=== PATIENT | female | born 1985 | race American Indian/Alaskan Native ===

== ENCOUNTER 2016-09-10 16:05 | Emergency (ER) | payer SELFPAY ==
[2016-09-10 16:45] LABS: Urine Drugs of Abuse Note Disclamer
[2016-09-10 17:01] LABS: Bilirubin,Urine NEG (Negative); Blood,Urine NEG (Negative); Ketones,Urine 20 mg/dL (Negative); Leukocyte Esterase,Urine NEG (Negative); Mucus,Urine 3+ /HPF; Nitrite,Urine NEG (Negative)
[2016-09-10 17:06] LABS: Basophils % (Auto) 0.6 % (0.0-1.8); Eosinophils % (Auto) 0.9 % (0.0-4.3); Hematocrit 42.4 % (30.3-42.9); Hemoglobin 13.5 gm/dl (10.1-14.3); Mean Corpuscular HGB Conc 32 % (30-34); Mean Corpuscular Hemoglobin 28 pg (28-32); Mean Corpuscular Volume 88 fl (79-97); Platelet Count 325 K/mm3 (140-440); Red Blood Count 4.83 M/mm3 (3.65-5.03); Red Cell Distribution Width 17.4 % (13.2-15.2); White Blood Count 8.6 K/mm3 (4.5-11.0)
[2016-09-10 17:23] LABS: Anion Gap 22 mmol/L; Blood Urea Nitrogen 21 mg/dL (7-17); Calcium 9.7 mg/dL (8.4-10.2); Carbon Dioxide 23 mmol/L (22-30); Chloride 98.3 mmol/L (98-107); Glucose 90 mg/dL (65-100); Potassium 3.5 mmol/L (3.6-5.0); Sodium 140 mmol/L (137-145)
--- NOTE | 2016-09-10 18:27 | Emergency Department Report ---
ED Female HPI - General Chief complaint: Psych Stated complaint: LWR ABD PAIN/VAG PAIN Time Seen by Provider: 09/10/16 18:08 Source: patient, EMS Mode of arrival: Ambulatory Limitations: No Limitations - History of Present Illness Initial comments: Pt is a 31 yr old F with a h/o psychiatric illness bipolar and schizophrenia who presents to the ED with multiple complaints. Pt is a poor historian, but reports she was in a home here in [facility] where she was doing a lot of drugs and "felt unsafe". The patient reports she has been off her psych medications, and needs "to get herself right and check out". Pt reports she is hearing voices, but cannot elaborate on the voices. She denies any SI/HI, delusions, or homicidal ideations. Pt is from [place], [place] and reports all her meds are at her mother's house. Pt also reports vaginitis symptoms of pain and itching. Pt has had multiple STD's in the past, but reports she has been treated. Pt is not forthcoming about the events leading up to today's visit. As per EMS, they were called to house after police had been there for a possible prostitution sting operation, and upon arrival the patient was c/o vaginitis and was telling EMS "I need to get checked out" and was brought to the hospital. Otherwise no fevers, chills, HART, NVD, CP, SOB, CP, abd pain, travel, or sick contacts. - Related Data Home Medications Medication Instructions Recorded Confirmed Last Taken Unobtainable 09/10/16 09/10/16 Unknown Allergies Allergy/AdvReac Type Severity Reaction Status Date / Time No Known Allergies Allergy Unverified 09/10/16 16:15 ED Review of Systems ROS: Stated complaint: LWR ABD PAIN/VAG PAIN Other details as noted in HPI ED Past Medical Hx - Past Medical History Previous Medical History?: Yes Hx Psychiatric Treatment: Yes (bipolar, schizophrenia) Additional medical history: STD exposure, Vaginal delivery x 1 - Surgical History Past Surgical History?: No - Social History Smoking Status: Current Every Day Smoker Substance Use Type: Alcohol, Cocaine, Marijuana, Prescribed - Medications Home Medications: Home Medications Medication Instructions Recorded Confirmed Last Taken Type Unobtainable 09/10/16 09/10/16 Unknown History ED Physical Exam - General Limitations: No Limitations General appearance: alert, in no apparent distress - Head Head exam: Present: atraumatic, normocephalic - Eye Eye exam: Present: normal appearance - ENT ENT exam: Present: mucous membranes moist - Neck Neck exam: Present: normal inspection - Respiratory Respiratory exam: Present: normal lung sounds bilaterally. Absent: respiratory distress - Cardiovascular Cardiovascular Exam: Present: regular rate, normal rhythm. Absent: systolic murmur, diastolic murmur, rubs, gallop - GI/Abdominal GI/Abdominal exam: Present: soft, normal bowel sounds - Rectal Rectal exam: Present: deferred - External exam: Present: normal external exam. Absent: erythema, swelling, lesions, lacerations Speculum exam: Present: vaginal discharge, cervical discharge. Absent: erythema , vaginal bleeding, foreign body, laceration Bi-manual exam: Present: normal bi-manual exam - Extremities Exam Extremities exam: Present: normal inspection - Back Exam Back exam: Present: normal inspection - Neurological Exam Neurological exam: Present: alert, oriented X3, CN II-XII intact, normal gait - Psychiatric Psychiatric exam: Present: depressed, anxious, other (crying). Absent: manic, homicidal ideation, suicidal ideation - Skin Skin exam: Present: warm, dry, intact, normal color. Absent: rash ED Course Vital Signs 09/10/16 09/10/16 09/10/16 16:15 18:26 20:19 Temperature 98.5 F 98.3 F Pulse Rate 60 72 Respiratory 18 16 17 Rate Blood Pressure 122/89 Blood Pressure 102/57 [Left] O2 Sat by Pulse 100 99 98 Oximetry 09/11/16 09/11/16 06:08 12:06 Temperature 98 F Pulse Rate 99 H Respiratory 18 18 Rate Blood Pressure Blood Pressure 121/63 131/80 [Left] O2 Sat by Pulse 98 98 Oximetry ED Medical Decision Making - Lab Data Result diagrams: 09/10/16 16:41 09/10/16 16:41 - Medical Decision Making I called the [facility] on [address] in [place], [place] to verify patient's psych medications and the patient has not taken her meds in 2 years: Trazodone 50mg PO QHS Risperdal 1mg PO QHS Celexa 20mg PO Daily Pt made 1013 at 0657 Will treat for Gonorrhea, Chlamydia, and Yeast infection Pt medically cleared, patient needs to be screened by Psych team Psych consult appreciated: Recent 101. Start Vistaril 25 mg by mouth 3 times a day for anxiety and trazodone 50 mg by mouth daily at bedtime for sleep consolidation. Discussed possible suicidality medication induced annmarie with patient referenced antidepressants. Do not discharge patient, will reassess patient in 24 hourswith suicide risk assessment. Critical care attestation.: If time is entered above; I have spent that time in minutes in the direct care of this critically ill patient, excluding procedure time. ED Disposition Clinical Impression: Schizophrenia, Bipolar 1 disorder, Vaginitis, Substance abuse, Substance induced mood disorder Condition: Stable
[2016-09-10] MEDS ORDERED: DIFLUCAN PO ONE (19:20)
[2016-09-10] MEDS ORDERED: XYLOCAINE 1% MPF 5 mL INFILTRATI ONE (19:20)
[2016-09-10] MEDS ORDERED: ROCEPHIN IM ONE (19:20)
[2016-09-10] MEDS ORDERED: ZITHROMAX PO ONE (19:20)
[2016-09-10 19:58] LABS: HIV-1 Antigen p24 Non React (Non React); HIVR-1/2 Ab Non React (Non React)
[2016-09-10] MEDS ORDERED: ATIVAN PO ONE (21:30)
[2016-09-10] MEDS ORDERED: ATIVAN ONE (21:35)
--- NOTE | 2016-09-11 16:28 | Consultation ---
History of Present Illness - Reason for Consult Consult date: 09/11/16 Reason for consult: Mental Health Evaluation Requesting physician: KATINA MANNING - Chief Complaint Chief complaint: "I want to get off drugs" - History of Present Psychiatric Illness Pt is a 31 yr old F with a h/o psychiatric illness presenting to [facility]. Today patient is calm, anxious but emotional during assessment. She stated that she want to get off the street drugs and alcohol (etoh) (cocaine and marijuana). She stated that she has struggled with depression symptoms (sad and feeling hopeless). Also, patient stated that she have experienced auditory hallucinations when the drugs and alcohol wear off. She stated that that she used drugs prior to coming to [facility] because she hate her current life. She stated using cocaine for a couple years with increased alcohol consumption (etoh ). She stated that she fear that she will not be able to get her life together. She stated that she experience sleep disturbance and sexual promiscuity when she use recreational drugs per the patient. She denies SI/HI's and AVH's. She is willing to participate in rehab services once discharged. Medications and Allergies Allergies Allergy/AdvReac Type Severity Reaction Status Date / Time No Known Allergies Allergy Unverified 09/10/16 16:15 Home Medications Medication Instructions Recorded Confirmed Last Taken Type Unobtainable 09/10/16 09/10/16 Unknown History Past psychiatric history - Past Medical History Past Medical History: other (STD's) Past Surgical History: No surgical history - past Psychiatric treatment and history Psych: Depression psychiatric treatment history: Inpatient psy services in [place], [place]. Patient denies a fam psy hx. - Social History Social history: other (GED, resides with friends) Mental Status Exam - Vital signs Last Vital Signs Temp 98 F 09/11/16 12:06 Pulse 99 H 09/11/16 12:06 Resp 18 09/11/16 12:06 BP 131/80 09/11/16 12:06 Pulse Ox 98 09/11/16 12:06 - Exam Narrative exam: ROS: (-) psychosis (+) anxious MSE: Appearance: calm, cooperative Behavior: emotional Speech: low rate and tone Mood: "okay" sad, withdrawn Affect: congruent to mood Thought Process: linear Thought Content: denies SI/HI's and AVH's Motor Activity: ambulatory Cognition: A/Ox 3 Insight: fair Judgment: fair Results Result Diagrams: 09/10/16 16:41 09/10/16 16:41 Abnormal lab results 09/10/16 09/10/16 09/10/16 Range/Units 16:33 16:41 16:41 RDW 17.4 H (13.2-15.2) % [place] % (Auto) 8.8 H (0.0-7.3) % Potassium 3.5 L (3.6-5.0) mmol/L BUN 21 H (7-17) mg/dL Ur Specific [place] 1.032 H (1.003-1.030) U Epithel Cells (Auto) 16.0 H (0-13.0) /HPF All other labs normal. Assessment and Plan Assessment and plan: impression: Substance Induced Mood DO, SHWETHA, Alcohol Use DO, Substance Use DO ( cocaine/marijuana). Today patient is calm, anxious but emotional during assessment. She stated that she want to get off the street drugs and alcohol ( etoh) (cocaine and marijuana). She stated that she has struggled with depression symptoms (sad and feeling hopeless). She denies SI/HI's and AVH's. Positive for marijuana. DDx: R/O Bipolar, MDD I. This screening and assessment is based on information collected from the following sources: II. SUICIDE RISK SCREENING (within last 30 days): A.) Suicidal thoughts/behaviors: None SUICIDE RISK ASSESSMENT III. FACTORS THAT INCREASE RISK: A.) Demographic and Substance Use Factors: None B.) Current/Recent Factors (within past 3 months): Psychosocial/Environmental Factors: Family in [place], [place] Physical Illness: STD Cognitive/Psychological Factors: None C.) Historical Factors: None D.) Diagnostic/Symptom/Treatment Factors: None E.) Acute Risk Factor Severity (DESC; MILD/MOD/SEVERE) mild Other factors for this individual that increase risk: IV. FACTORS THAT DECREASE RISK: Resilience/Protective Factors: Patient want to decrease her stress Other factors for this individual that decrease risk: Patient denies a desire to harm self. V. Clinician's Formulation of Risk and Determination of level of Care: This is a 31-year-old female who is experiencing stress about her life. Patient is concern about her current life reference substance and alcohol abuse. She is willing to attend AA/NA and rehab service once discharged. Since being hospitalized, the patient has consistently denied the desire to harm herself. Additionally, she has become insightful about how to better address her current issue. She is able to take care of her ADLs and is not at imminent risk of harm to self or others. Consequently, it is the opinion of the treatment team that the patient is at low risk of suicide and does not meet criteria to continue an involuntary psychiatric hold. Estimation of Imminent Risk: Low due to the above explanation. Determination of Level of Care based on Suicide Risk: Outpatient follow-up. Narrative description of clinical reasoning. (This must be completed on all patients): . Plan and Interventions based on Suicide Risk: This patient will likely be stepped down to an outpatient mental health center in the community upon discharge and follow-up within 7 days of his discharge from the hospital. VII. Discharge/After Hours Support Plan: Patient can return back to the ER, call 911 or crisis line if symptoms of depression, anxiety, suicidality return. Recommendation/Plan: Rescind 1013. Start Vistaril 25 mg PO TID for anxiety and Trazodone 50 mg PO HS for sleep consolidation. Discussed possible suicidality and medication induced annmarie with patient reference antidepressants. Do not discharge patient, will reassess patient in 24 hours with another suicide risk assessment. .
[2016-09-11] MEDS: VISTARIL PO SCH (21:45)
[2016-09-11] MEDS: DESYREL PO SCH (21:45)
[2016-09-12] MEDS: VISTARIL PO SCH ×3 (09:50→22:01)
--- NOTE | 2016-09-12 12:31 | Progress Note ---
Subjective - Reason for Consult Consult date: 09/12/16 Reason for consult: Psychiatry Follow-up - Chief Complaint Chief complaint: "I will get my life together" Pt is a 31 yr old female with a h/o psychiatric illness presenting to [facility]. Today patient is calm and cooperative during assessment. She stated that she is scared about her next move in life. She is willing to do whatever it take for stabilization (rehab for substance/alcohol) so she can be a better mother. Patient is requesting placement, because she is homeless. Her closest relative, her mom reside in [place], [place]. She denies SI/HI's, AVH's, and depression symptoms. She denies any side effects from her medications. Mental Status Exam - Vital signs Last Vital Signs Temp 97.7 F 09/12/16 11:19 Pulse 95 H 09/12/16 11:19 Resp 16 09/12/16 11:24 BP 107/54 09/12/16 11:19 Pulse Ox 99 09/12/16 11:24 - Exam Narrative exam: MSE: Appearance: calm, cooperative Behavior: emotional Speech: low rate and tone Mood: "okay" sad, withdrawn Affect: congruent to mood Thought Process: linear Thought Content: denies SI/HI's and AVH's Motor Activity: ambulatory Cognition: A/Ox 3 Insight: fair Judgment: fair Assessment and Plan Impression: Substance Induced Mood DO, SHWETHA, Alcohol Use DO, Substance Use DO ( cocaine/marijuana). Today patient is calm and cooperative during assessment. She stated that she is scared about her next move in life, but want to do whatever it takes to get stable and be a better mother. She denies SI/HI's and AVH's. Patient is no threat to self. Positive for marijuana. Patient is homeless. I. This screening and assessment is based on information collected from the following sources: II. SUICIDE RISK SCREENING (within last 30 days): A.) Suicidal thoughts/behaviors: None SUICIDE RISK ASSESSMENT III. FACTORS THAT INCREASE RISK: A.) Demographic and Substance Use Factors: None B.) Current/Recent Factors (within past 3 months): Psychosocial/Environmental Factors: Family in [place], [place] Physical Illness: STD resolved Cognitive/Psychological Factors: None C.) Historical Factors: None D.) Diagnostic/Symptom/Treatment Factors: None E.) Acute Risk Factor Severity (DESC; MILD/MOD/SEVERE): Mild Other factors for this individual that increase risk: IV. FACTORS THAT DECREASE RISK: Resilience/Protective Factors: Patient want to decrease her stress Other factors for this individual that decrease risk: Patient denies a desire to harm self. V. Clinician's Formulation of Risk and Determination of level of Care: This is a 31-year-old female who is experiencing stress about her life. Patient is concern about her current life reference substance and alcohol abuse. She is willing to attend AA/NA and rehab service once discharged. Since being hospitalized, the patient has consistently denied the desire to harm herself. Additionally, she has become insightful about how to better address her current issue. Patient is not impaired by substance. She is able to take care of her ADLs and is not at imminent risk of harm to self or others. Consequently, it is the opinion of the treatment team that the patient is at low risk of suicide and does not meet criteria to continue an involuntary psychiatric hold. Estimation of Imminent Risk: Low due to the above explanation. Determination of Level of Care based on Suicide Risk: Outpatient follow-up. Narrative description of clinical reasoning. (This must be completed on all patients): . Plan and Interventions based on Suicide Risk: This patient will likely be stepped down to an outpatient mental health center in the community upon discharge and follow-up within 7 days of her discharge from the hospital. VII. Discharge/After Hours Support Plan: Patient can return back to the ER, call 911 or crisis line if symptoms of depression, anxiety, suicidality return. Recommendation/Plan: Continue Vistaril 25 mg PO TID for anxiety and Trazodone 50 mg PO HS for sleep consolidation. Discussed possible suicidality and medication induced annmarie with patient reference antidepressants. Patient given outpatient psy/rehab services (substance/alcohol abuse) information for her local area. Ele[employer]ator [employer]ctor involvement, patient is homeless. Discussed the importance to abstain from alcohol consumption and recreational drug use.
--- NOTE | 2016-09-12 18:19 | Emergency Department Report ---
HPI - General Chief Complaint: Psych Time Seen by Provider: 09/10/16 18:08 ED Past Medical Hx - Past Medical History Previous Medical History?: Yes Hx Psychiatric Treatment: Yes (bipolar, schizophrenia) Additional medical history: STD exposure, Vaginal delivery x 1 - Surgical History Past Surgical History?: No - Social History Smoking Status: Current Every Day Smoker Substance Use Type: Alcohol, Cocaine, Marijuana, Prescribed - Medications Home Medications: Home Medications Medication Instructions Recorded Confirmed Last Taken Type hydrOXYzine PAMOATE [Vistaril] 25 mg PO Q6HR #30 capsule 09/12/16 Unknown Rx traZODone [Desyrel] 50 mg PO QHS #20 tab 09/12/16 Unknown Rx ED Review of Systems ROS: Stated complaint: LWR ABD PAIN/VAG PAIN Other details as noted in HPI Physical Exam - Physical Exam Vital Signs: Vital Signs 09/10/16 09/10/16 09/10/16 16:15 18:26 20:19 Temperature 98.5 F 98.3 F Pulse Rate 60 72 Respiratory 18 16 17 Rate Blood Pressure 122/89 Blood Pressure 102/57 [Left] O2 Sat by Pulse 100 99 98 Oximetry 09/11/16 09/11/16 09/11/16 06:08 12:06 19:30 Temperature 98 F 98.4 F Pulse Rate 99 H 98 H Respiratory 18 18 16 Rate Blood Pressure Blood Pressure 121/63 131/80 116/74 [Left] O2 Sat by Pulse 98 98 98 Oximetry 09/12/16 09/12/16 11:19 11:24 Temperature 97.7 F Pulse Rate 95 H Respiratory 16 16 Rate Blood Pressure Blood Pressure 107/54 [Left] O2 Sat by Pulse 99 99 Oximetry ED Course Vital Signs 09/10/16 09/10/16 09/10/16 16:15 18:26 20:19 Temperature 98.5 F 98.3 F Pulse Rate 60 72 Respiratory 18 16 17 Rate Blood Pressure 122/89 Blood Pressure 102/57 [Left] O2 Sat by Pulse 100 99 98 Oximetry 09/11/16 09/11/16 09/11/16 06:08 12:06 19:30 Temperature 98 F 98.4 F Pulse Rate 99 H 98 H Respiratory 18 18 16 Rate Blood Pressure Blood Pressure 121/63 131/80 116/74 [Left] O2 Sat by Pulse 98 98 98 Oximetry 09/12/16 09/12/16 11:19 11:24 Temperature 97.7 F Pulse Rate 95 H Respiratory 16 16 Rate Blood Pressure Blood Pressure 107/54 [Left] O2 Sat by Pulse 99 99 Oximetry ED Medical Decision Making - Lab Data Result diagrams: 09/10/16 16:41 09/10/16 16:41 - Medical Decision Making Patient has been evaluated by psych team and they recommended discharge. I have reviewed patient's chart. She came in complaining of vaginitis and appeared psych history. Patient has never endorse SI/HI. She's been noncompliant with her psych medications over 2 years. I will restart today. Patient agrees she still discharged home and follow-up with psych outpatient. At this time patient does not appear to be a threat to herself or others. Critical Care Time: No Critical care attestation.: If time is entered above; I have spent that time in minutes in the direct care of this critically ill patient, excluding procedure time. ED Disposition Clinical Impression: Psychosis, Vaginitis, Schizophrenia, Bipolar 1 disorder Disposition: [id number] LEFT AGAINST MED ADVICE Is pt being admited?: No Does the pt Need Aspirin: No Condition: Stable Instructions: Vaginitis (ED) Prescriptions: traZODone [Desyrel] 50 mg PO QHS #20 tab hydrOXYzine PAMOATE [Vistaril] 25 mg PO Q6HR #30 capsule Referrals: PRIMARY CARE, [Primary Care Provider] - 3-5 Days [facility] [Advanced Practice Nurse] - 3-5 Days Forms: Work/School Release Form(ED)
[2016-09-12] MEDS: DESYREL PO SCH (22:01)
[2016-09-13 00:02] VITALS: BP 109/78
== END 2016-09-13 09:00 | disposition left against medical advice (07) ==
LOC: EDBD 16:05 → EEVIPCON 16:05 → ED 16:05
DX: F20.9 Schizophrenia, unspecified (principal); F31.9 Bipolar disorder, unspecified; N76.0 Acute vaginitis; F19.10 Other psychoactive substance abuse, uncomplicated; F17.200 Nicotine dependence, unspecified, uncomplicated; F12.90 Cannabis use, unspecified, uncomplicated; F14.90 Cocaine use, unspecified, uncomplicated
CPT/HCPCS: 36415; 80048; 80307; 81001; 84703; 85025; 87210; 87591; 87806; 96372; 99285; G0480; J0696; 80320; Q0177